=== PATIENT | female | born 1940 | race Caucasian/White ===

== ENCOUNTER → 2019-05-30 12:02 | Outpatient (BNVA) | payer MEDICARE, OTHER, MEDICAID, SELFPAY | PROVIDERS: PCP Nurse Practitioner Family; Referring Provider Nurse Practitioner Family; Visit Provider Psychiatry & Neurology Neurology | DX: G20 Parkinson's disease (principal); I48.0 Paroxysmal atrial fibrillation; R44.1 Visual hallucinations; E53.8 Deficiency of other specified B group vitamins; R13.10 Dysphagia, unspecified; I95.1 Orthostatic hypotension; K59.00 Constipation, unspecified; F03.90 Unspecified dementia, unspecified severity, without behavioral disturbance, psychotic disturbance, mood disturbance, and anxiety | CPT/HCPCS: 99205 ==